=== PATIENT | female | born 1950 ===

== ENCOUNTER 2022-05-10 06:00 | Outpatient (RCR) | payer MEDICARE, SELFPAY | END 2022-05-27 23:59 | disposition home or self-care (01) | LOC: MPT 06:00 | PROVIDERS: Visit Provider Family Medicine | DX: N81.89 Other female genital prolapse (principal) | CPT/HCPCS: 97140; 97161 ==

== ENCOUNTER 2022-05-28 06:00 | Outpatient (RCR) | payer MEDICARE, SELFPAY | END 2022-06-27 23:59 | disposition home or self-care (01) | LOC: MPT 06:00 | PROVIDERS: Visit Provider Family Medicine | DX: N81.89 Other female genital prolapse (principal) | CPT/HCPCS: 97110; 97140; 97530 ==